=== PATIENT | female | born 1975 | race Caucasian/White ===

== ENCOUNTER 2022-05-02 13:10 | Outpatient (CLI) | payer OTHER, SELFPAY ==
--- NOTE | 2022-05-02 13:20 | CRLHL7_ITS ---
For Patients: As a result of the Century Cures Act, medical imaging exams and procedure reports are released immediately into your electronic medical record. You may view this report before your referring provider. If you have questions, please contact your health care provider. BILATERAL MAMMOGRAM WITH COMPUTER-AIDED DETECTION TECHNIQUE: CC and MLO views were obtained. These mammographic images have been obtained using full-field digital technique. These mammographic images were interpreted with the benefit of computer-aided detection. COMPARISON FILM: 12/15/20, 02/26/18, 02/20/17. FINDINGS: The breasts are heterogeneously dense, which may obscure small masses IMPRESSION: There is no radiographic evidence for malignancy. ASSESSMENT: BI-RADS Category 1: Negative RECOMMENDATION: Routine screening mammogram in 1 year. A lay language report of this examination will be provided to the patient. Dave Bello M.D. Diagnostic Radiologist [email or web address] DSM/bhe be/Dictated by: Dave Bello MD @ 05/03/2022 8:53:00 AM (Electronically Signed)
== END 2022-05-02 13:11 | disposition home or self-care (01) ==
LOC: MAMMO 13:11
PROVIDERS: PCP Physician Assistant Medical; Visit Provider Physician Assistant Medical
DX: Z12.31 Encounter for screening mammogram for malignant neoplasm of breast (principal)
CPT/HCPCS: 77063; 77067

== ENCOUNTER 2023-05-28 08:37 | Outpatient (CLI) | payer OTHER, SELFPAY | END 2023-05-28 08:38 | disposition home or self-care (01) | LOC: NFLDREF 05-30 14:08 | PROVIDERS: PCP Physician Assistant Medical; Referring Provider Physician Assistant Medical; Visit Provider Physician Assistant Medical | DX: Z00.00 Encounter for general adult medical examination without abnormal findings (principal); R53.83 Other fatigue; R74.8 Abnormal levels of other serum enzymes; R74.01 Elevation of levels of liver transaminase levels; F41.9 Anxiety disorder, unspecified | CPT/HCPCS: 80053; 80061 ==

== ENCOUNTER 2023-06-08 07:47 | Outpatient (CLI) | payer OTHER, SELFPAY ==
--- NOTE | 2023-06-08 08:15 | CRLHL7_ITS ---
For Patients: As a result of the Century Cures Act, medical imaging exams and procedure reports are released immediately into your electronic medical record. You may view this report before your referring provider. If you have questions, please contact your health care provider. CLINICAL HISTORY: ELEVATED LEVELS LFTS COMPARISON: 02/03/2011 TECHNIQUE: Real time kang scale imaging and color Doppler analysis was performed of the abdomen. FINDINGS: Sonographic imaging demonstrates normal size and uniform echotexture of the liver. The spleen is of normal size. The pancreas appears normal. The proximal abdominal aorta and IVC appear normal. There is no evidence of ascites. The gallbladder is surgically absent. The common bile duct measures 8 mm in size within the toño hepatis. The kidneys appear symmetric. The right kidney measures 11.2 cm in length and the left kidney measures 11.9 cm. There is no evidence of a renal calculus or hydronephrosis. IMPRESSION: Status post cholecystectomy. The remainder of the examination is unremarkable. Dictated by Dave Bello MD @ 06/08/2023 3:50:19 PM (Electronically Signed)
== END 2023-06-08 07:48 | disposition home or self-care (01) ==
PROVIDERS: PCP Physician Assistant Medical; Visit Provider Physician Assistant Medical
DX: R74.01 Elevation of levels of liver transaminase levels (principal); R74.8 Abnormal levels of other serum enzymes
CPT/HCPCS: 76700

== ENCOUNTER 2023-08-30 14:48 | Outpatient (CLI) | payer OTHER, SELFPAY ==
--- NOTE | 2023-08-30 15:00 | CRLHL7_ITS ---
For Patients: As a result of the Century Cures Act, medical imaging exams and procedure reports are released immediately into your electronic medical record. You may view this report before your referring provider. If you have questions, please contact your health care provider. BILATERAL SCREENING MAMMOGRAM WITH COMPUTER-AIDED DETECTION TECHNIQUE: CC and MLO views were obtained. These mammographic images have been obtained using full-field digital technique. These mammographic images were interpreted with the benefit of computer-aided detection. COMPARISON FILM: 05/02/22, 12/15/20, 02/26/18. FINDINGS: There are scattered areas of fibroglandular density IMPRESSION: There is no radiographic evidence for malignancy. ASSESSMENT: BI-RADS Category 1: Negative RECOMMENDATION: Routine screening mammogram in 1 year. A lay language report of this examination will be provided to the patient. Dave Bello M.D. Diagnostic Radiologist [email or web address] [place]/Dictated by: Dave Bello MD @ 09/04/2023 1:12:00 PM (Electronically Signed)
== END 2023-08-30 14:49 | disposition home or self-care (01) ==
LOC: MAMMO 14:48
PROVIDERS: PCP Physician Assistant Medical; Visit Provider Physician Assistant Medical
DX: Z12.31 Encounter for screening mammogram for malignant neoplasm of breast (principal)
CPT/HCPCS: 77063; 77067

== ENCOUNTER 2024-08-25 15:51 | Outpatient (CLI) | payer OTHER, SELFPAY ==
[2024-08-27 14:13] LABS: HPV Source Cervix; HPV, High Risk by TMA Not Detected
[2024-09-01 17:01] LABS: Pap Test Reviewed by Path Done
== END 2024-08-25 15:52 | disposition home or self-care (01) ==
PROVIDERS: PCP Physician Assistant Medical; Visit Provider Physician Assistant Medical
DX: Z12.4 Encounter for screening for malignant neoplasm of cervix (principal); Z11.51 Encounter for screening for human papillomavirus (HPV)
CPT/HCPCS: 87624; 87625; 88141; 88142

== ENCOUNTER 2024-08-26 08:45 | Outpatient (CLI) | payer OTHER, SELFPAY | END 2024-08-26 08:46 | disposition home or self-care (01) | LOC: NFLDREF 08-27 05:34 | PROVIDERS: PCP Physician Assistant Medical; Referring Provider Physician Assistant Medical; Visit Provider Physician Assistant Medical | DX: R74.01 Elevation of levels of liver transaminase levels (principal); R74.8 Abnormal levels of other serum enzymes; Z11.59 Encounter for screening for other viral diseases; Z11.4 Encounter for screening for human immunodeficiency virus [HIV] | CPT/HCPCS: 80053; 80061; 86703; 86803 ==

== ENCOUNTER 2024-11-07 09:08 | Outpatient (CLI) | payer OTHER, SELFPAY | END 2024-11-07 09:09 | disposition home or self-care (01) | LOC: MAMMO 09:08 | PROVIDERS: PCP Physician Assistant Medical; Visit Provider Physician Assistant Medical | DX: Z12.31 Encounter for screening mammogram for malignant neoplasm of breast (principal) | CPT/HCPCS: 77063; 77067 ==